=== PATIENT | female | born 1995 | race Caucasian/White ===

== ENCOUNTER 2019-02-02 18:36 | Emergency (ER) | payer OTHER ==
[~2019-02-02] VITALS: Ht 167.6 cm; Wt 64.0 kg
[~2019-02-02 18:36] MED LIST: CIPRO500 MG PO; IBUPROFEN600 MG PO; NAPROSYN500 MG PO; NORCO 5-325 TA1 EACH PO; PENICILLIN V P500 MG PO; PYRIDIUM200 MG PO
== END 2019-02-02 19:45 | disposition home or self-care (01) ==
LOC: ED 18:36
DX: S00.511A Abrasion of lip, initial encounter (principal); K03.81 Cracked tooth; W22.8XXA Striking against or struck by other objects, initial encounter; Z87.891 Personal history of nicotine dependence
CPT/HCPCS: 90471; 90715; 99283-25

== ENCOUNTER 2019-10-06 11:19 | Emergency (ER) | payer OTHER ==
[~2019-10-06] VITALS: Ht 167.6 cm; Wt 64.0 kg
== END 2019-10-06 12:15 | disposition home or self-care (01) ==
LOC: ED 11:19
DX: S39.012A Strain of muscle, fascia and tendon of lower back, initial encounter (principal); Z87.891 Personal history of nicotine dependence; X58.XXXA Exposure to other specified factors, initial encounter
CPT/HCPCS: 99283; A9270

== ENCOUNTER 2020-10-22 14:37 | Emergency (ER) | payer OTHER ==
[~2020-10-22] VITALS: Ht 167.6 cm; Wt 74.8 kg
[2020-10-22] MEDS ORDERED: ACETAMINOPHEN500 MG PO (14:57)
[2020-10-22] MEDS ORDERED: HYDROCODON-ACE1 EA10 PO (16:34)
[2020-10-24] MEDS ORDERED: HYDROCODON-ACE1 EA11 PO (11:35)
[2020-10-24] MEDS ORDERED: DICLOFENAC SODI75 MG PO (11:35)
[2020-10-24] MEDS ORDERED: GABAPENTIN300 MG PO (11:36)
[2020-10-24] MEDS ORDERED: ASPIRIN325 MG PO (11:36)
== END 2020-10-22 16:45 | disposition home or self-care (01) ==
LOC: ED 14:37
DX: S83.511A Sprain of anterior cruciate ligament of right knee, initial encounter (principal); W10.9XXA Fall (on) (from) unspecified stairs and steps, initial encounter
CPT/HCPCS: 73560; 99283-25

== ENCOUNTER 2022-06-02 09:11 | Emergency (ER) | payer OTHER ==
[~2022-06-02] VITALS: Ht 167.6 cm; Wt 55.8 kg
[~2022-06-02 09:11] MED LIST changes: +ACETAMINOPHEN500 MG PO; +ASPIRIN325 MG PO; +DICLOFENAC SODI75 MG PO; +GABAPENTIN300 MG PO; +HYDROCODON-ACE1 EA10 PO; +HYDROCODON-ACE1 EA11 PO
--- NOTE | 2022-06-02 20:24 | EKG ---
[facility] [address] [facility] [place], [place] [address] Signed Sinus tachycardia with premature atrial complexes Otherwise normal ECG No previous ECGs available Confirmed by HAILEE LOZANO MD ([id number]) on 06/02/2022 8:24:05 PM Electronically Signed By: HAILEE LOZANO MD 06/02/222023 PATIENT NAME: VANNA HALL Electrocardiogram DATE OF : [birth year] PHYSICIAN: HAILEE LOZANO MD REPORT #: [id number] REPORT IS CONFIDENTIAL AND NOT TO BE RELEASED WITHOUT AUTHORIZATION
== END 2022-06-02 11:14 | disposition home or self-care (01) ==
LOC: ED 09:11
DX: R07.89 Other chest pain (principal); F17.210 Nicotine dependence, cigarettes, uncomplicated; Z20.822 Contact with and (suspected) exposure to COVID-19
CPT/HCPCS: 36415; 71045; 84484; 87502; 93005; 93010; 99285-25; 99406; C9803; U0003

== ENCOUNTER 2023-04-19 08:54 | Emergency (ER) | payer OTHER | END 2023-04-19 09:44 | disposition home or self-care (01) | LOC: ED 08:54 | DX: S13.4XXA Sprain of ligaments of cervical spine, initial encounter (principal); X58.XXXA Exposure to other specified factors, initial encounter ==

== ENCOUNTER 2025-03-04 09:29 | Emergency (ER) | payer OTHER ==
[~2025-03-04] VITALS: Ht 167.6 cm; Wt 75.0 kg
[~2025-03-04 09:29] MED LIST changes: +CYCLOBENZAPRINE10 MG PO; +PREDNISONE20 MG PO
[2025-03-04] MEDS ORDERED: SODIUM CHLORIDE 0.9% 1,000 ML IV PRN (10:00)
[2025-03-04] MEDS ORDERED: ACETAMINOPHEN 500 MG TAB PO ONE (10:00)
[2025-03-04 10:13] LABS: BASOPHILS 0.4 % (0.1-1.2); EOSINOPHILS 0.5 % (0.7-5.8); HEMATOCRIT 38.2 % (34.1-44.9); HEMOGLOBIN 12.7 g/dL (11.2-15.7); LYMPHOCYTES 15.3 % (19.3-51.7); MCH 30.3 PG (25.6-32.2); MCHC 33.2 g/dL (32.2-35.5); MCV 91.2 fL (79.4-94.8); NEUTROPHILS 77.5 % (34.0-71.1); PLATELET COUNT 169 K/uL (182-369); RBC 4.19 M/uL (3.93-5.22)
[2025-03-04 10:16] LABS: BILIRUBIN, URINE NEGATIVE (negative); BLOOD/HGB, URINE NEGATIVE (Negative); KETONE, URINE NEGATIVE (Negative); LEUK ESTERASE, URINE NEGATIVE (negative); NITRITE, URINE NEGATIVE (negative); PH, URINE 7.5 (5-7)
[2025-03-04 10:29] LABS: ALBUMIN/GLOBULIN RATIO 0.79 (1.1-2.4); ANION GAP 15.8 (7-21); BILIRUBIN, TOTAL 0.2 mg/dL (0.2-1.0); BUN/CREATININE RATIO 11.32 (6.0-28.6); CALCIUM 8.5 mg/dL (8.5-10.1); CREATININE, SERUM 0.53 mg/dL (0.55-1.02); POTASSIUM 3.8 mmol/L (3.5-5.1); PROTEIN, TOTAL 6.8 g/dL (6.4-8.2)
[2025-03-04 11:43] VITALS: BP 113/71
== END 2025-03-04 11:40 | disposition home or self-care (01) ==
LOC: ED 09:29
PROVIDERS: Emergency Medicine
DX: O99.891 Other specified diseases and conditions complicating pregnancy (principal); R51.9 Headache, unspecified; Z3A.28 28 weeks gestation of pregnancy
CPT/HCPCS: 36415; 80053; 81003; 85025; 85384; 99284; A9270; J7030

== ENCOUNTER 2025-05-18 14:28 | Inpatient (IN) | payer OTHER ==
[~2025-05-18] VITALS: Ht 167.6 cm; Wt 80.7 kg
[~2025-05-18 14:28] MED LIST changes: +CALCIUM CARBONATE 500 MG CHEW PO PRN; +LACTATED RINGER'S 1,000 ML IV ONE; +LACTATED RINGER'S 1,000 ML IV SCH; +MAGNESIUM HYDROXIDE/AL HYDROX 30 ML CUP PO PRN; +PENICILLIN G POTASSIUM 2.5 MUNITS in SODIUM CHLORIDE 0.9% 100 ML IV SCH; +PENICILLIN G POTASSIUM 5 MUNITS in SODIUM CHLORIDE 0.9% 100 ML IV ONE
[2025-05-24] MEDS ORDERED: LIDOCAINE HCL 1% 30 ML SDV INJ PRN (00:15)
[2025-05-24] MEDS ORDERED: TERBUTALINE SULFATE 1 MG/ML AMP SUB-Q PRN (00:15)
[2025-05-24] MEDS ORDERED: CALCIUM CARBONATE 500 MG CHEW PO PRN ×2 (00:15→13:15)
[2025-05-24] MEDS ORDERED: LACTATED RINGER'S 1,000 ML IV PRN (00:15)
[2025-05-24] MEDS ORDERED: MAGNESIUM HYDROXIDE/AL HYDROX 30 ML CUP PO PRN ×2 (00:15→13:15)
[2025-05-24] MEDS ORDERED: OXYTOCIN/0.9 % SODIUM CHLORIDE 30 UNITS/500 ML BAG IV SCH (00:15)
[2025-05-24 00:49] LABS: MCH 29.0 PG (25.6-32.2); MCHC 33.0 g/dL (32.2-35.5); MCV 87.9 fL (79.4-94.8); RBC 3.72 M/uL (3.93-5.22)
[2025-05-24 00:55] LABS: AMPHETAMINES, URINE NEGATIVE (NEGATIVE); BARBITURATES, URINE NEGATIVE (NEGATIVE); BENZODIAZEPINE, URINE NEGATIVE (NEGATIVE); CANNABINOID, URINE POSITIVE (NEGATIVE); COCAINE, URINE NEGATIVE (NEGATIVE); ECSTASY, URINE NEGATIVE (NEGATIVE); FENTANYL, URINE NEGATIVE (NEGATIVE); METHADONE, URINE NEGATIVE (NEGATIVE); OPIATES, URINE NEGATIVE (NEGATIVE); OXYCODONE, URINE NEGATIVE (NEGATIVE); PHENCYCLIDINE, URINE NEGATIVE (NEGATIVE)
[2025-05-24 01:25] LABS: ABO O; ANTIBODY SCREEN NEGATIVE; RH POSITIVE
[2025-05-24 01:43] VITALS: BP 122/80
[2025-05-24] MEDS ORDERED: PENICILLIN G POTASSIUM 5 MUNITS in SODIUM CHLORIDE 0.9% 100 ML IV ONE (07:00)
[2025-05-24] MEDS ORDERED: fentaNYL citrate 100 MCG/2 ML VIAL IV ONE (07:15)
[2025-05-24] MEDS ORDERED: ROPIVACAINE 0.2% 200 ML BAG ONE (09:02)
[2025-05-24] MEDS ORDERED: LIDOCAINE HCL 2% 5 ML SDV ONE (09:54)
[2025-05-24] MEDS ORDERED: ROPIVACAINE 0.2% 200 ML BAG EPIDURAL SCH (10:30)
[2025-05-24] MEDS ORDERED: ePHEDrine sulfate 5 MG/ML SYRINGE IV PRN (10:30)
[2025-05-24] MEDS ORDERED: LACTATED RINGER'S 500 ML IV PRN (10:30)
[2025-05-24] MEDS ORDERED: LACTATED RINGER'S 2,000 ML IV ONE (10:30)
[2025-05-24] MEDS ORDERED: PENICILLIN G POTASSIUM 2.5 MUNITS in SODIUM CHLORIDE 0.9% 100 ML IV SCH (11:00)
[2025-05-24] MEDS ORDERED: ACETAMINOPHEN 325 MG TAB PO PRN (13:15)
[2025-05-24] MEDS ORDERED: IBUPROFEN 600 MG TAB PO PRN (13:15)
[2025-05-24] MEDS ORDERED: BENZOCAINE 60 ML AEROSOL TOP PRN (13:15)
[2025-05-24] MEDS ORDERED: OXYTOCIN/0.9 % SODIUM CHLORIDE 500 ML IV SCH (13:15)
[2025-05-24] MEDS ORDERED: MAGNESIUM HYDROXIDE 30 ML UDC PO PRN (13:15)
[2025-05-24] MEDS ORDERED: HYDROCORTISONE ACETATE 25 MG SUPP PR PRN (13:15)
[2025-05-24] MEDS ORDERED: WITCH HAZEL/GLYCERIN 1 EA PAD TOP PRN (13:15)
[2025-05-24] MEDS ORDERED: LIDOCAINE 2% VISCOUS 6 ML SYR TOP ONE ×2 (13:15)
[2025-05-24] MEDS ORDERED: SENNOSIDES/DOCUSATE 1 EA TAB PO SCH (21:00)
== END 2025-05-25 14:00 | disposition home or self-care (01) | DRG 807 ==
LOC: FBC 14:28 → FBCO 05-24 10:59 → EDSTATUS 05-24 14:26 → FBC 05-24 22:43
PROVIDERS: ADMIT Advanced Practice Midwife; ATTEND Advanced Practice Midwife
PROC: 10E0XZZ Delivery of Products of Conception, External Approach (ICD-10-PCS; principal; 2025-05-24)
PROC: 4A1HXCZ Monitoring of Products of Conception, Cardiac Rate, External Approach (ICD-10-PCS; 2025-05-24)
PROC: 3E0P7VZ Introduction of Hormone into Female Reproductive, Via Natural or Artificial Opening (ICD-10-PCS; 2025-05-24)
PROC: 0W8NXZZ Division of Female Perineum, External Approach (ICD-10-PCS; 2025-05-24)
PROC: 00HU33Z Insertion of Infusion Device into Spinal Canal, Percutaneous Approach (ICD-10-PCS; 2025-05-24)
PROC: 3E0R3BZ Introduction of Anesthetic Agent into Spinal Canal, Percutaneous Approach (ICD-10-PCS; 2025-05-24)
DX: O99.824 Streptococcus B carrier state complicating childbirth (principal); Z37.0 Single live birth; Z3A.40 40 weeks gestation of pregnancy; O69.81X0 Labor and delivery complicated by cord around neck, without compression, not applicable or unspecified; Z87.891 Personal history of nicotine dependence
CPT/HCPCS: 01960; 36415; 80307; 85027; 86850; 86900; 86901; A9270; J2003; J2540; J3010; J7121